=== PATIENT | female | born 1945 | race Caucasian/White ===

== ENCOUNTER 2020-08-08 14:27 | Outpatient (CLI) | payer MEDICARE, BC ==
[2020-08-09 01:52] LABS: SARS-CoV-2 PCR by NAA Not Detected (NotDetected)
== END 2020-08-08 14:28 | disposition home or self-care (01) ==
LOC: LABBT 14:27
PROVIDERS: ATTEND Family Medicine
DX: Z01.812 Encounter for preprocedural laboratory examination (principal); Z20.822 Contact with and (suspected) exposure to COVID-19
CPT/HCPCS: U0003; U0005; 87635

== ENCOUNTER 2020-08-13 08:08 | Day surgery (SDC) | payer MEDICARE, BC ==
[~2020-08-13 08:08] MED LIST: EPINEPHrine 0.3 MG in Ophthalmic Irrigation Solution 500 ML IRR SCH; Fentanyl 100 MCG/2 ML VIAL ONE; Midazolam HCl 2 mg/2 ml Vial ONE; PROPOFOL 20 ML ONE
[2020-08-13] MEDS ORDERED: Phenylephrine 2.5% Ophth Soln 5 ML BOT ONE (09:19)
[2020-08-13] MEDS ORDERED: Cyclopentolate 1% Ophth Drops 15 ML BOT ONE (09:19)
[2020-08-13] MEDS ORDERED: CEFAZOLIN 1 GM VIAL ONE (11:07)
[2020-08-13] MEDS ORDERED: Triamcinolone 40 MG/ML VIAL ONE (11:07)
[2020-08-13] MEDS ORDERED: Maxitrol 0.1% Opth Oint 3.5 GM TUBE ONE (11:07)
[2020-08-13] MEDS ORDERED: Lidocaine 4% PF 5 ML AMP ONE (11:07)
[2020-08-13] MEDS ORDERED: Bupivacaine PF 0.75% SDV 10 ML ONE (11:07)
[2020-08-13] MEDS ORDERED: Lidocaine 1% PF 5 ML VIAL ONE (11:07)
== END 2020-08-13 12:30 | disposition home or self-care (01) ==
LOC: SDC 08:08
PROVIDERS: ATTEND Ophthalmology Retina Specialist
PROC: 08T43ZZ Resection of Right Vitreous, Percutaneous Approach (ICD-10-PCS; principal; 2020-08-13)
PROC: 08NE3ZZ Release Right Retina, Percutaneous Approach (ICD-10-PCS; 2020-08-13)
DX: H43.821 Vitreomacular adhesion, right eye (principal); H43.311 Vitreous membranes and strands, right eye; Z79.82 Long term (current) use of aspirin; Z79.84 Long term (current) use of oral hypoglycemic drugs; Z79.899 Other long term (current) drug therapy; Z88.5 Allergy status to narcotic agent; Z88.6 Allergy status to analgesic agent
CPT/HCPCS: J0171; J0690; J2250; J2704; J3010; J3301; J3490

== ENCOUNTER 2022-10-27 06:45 | Day surgery (SDC) | payer MEDICARE, BC ==
[2022-10-26 11:31] VITALS: BMI 31.1
[~2022-10-27 06:45] MED LIST changes: -Fentanyl 100 MCG/2 ML VIAL ONE; -PROPOFOL 20 ML ONE; +fentaNYL 50 mcg/mL 1 mL Vial ONE
[2022-10-27] MEDS ORDERED: Cyclopentolate 1% Opth Drop 2 ML BOT ONE (07:56)
[2022-10-27] MEDS ORDERED: PHENYLephrine 2.5% Ophth Soln 15 ml Bottle ONE (07:56)
[2022-10-27] MEDS ORDERED: Triamcinolone 40 MG/ML VIAL ONE (08:29)
[2022-10-27] MEDS ORDERED: CEFAZOLIN 1 GM VIAL ONE (08:29)
[2022-10-27] MEDS ORDERED: PROPOFOL 200 MG/20 ML VIAL ONE (08:29)
[2022-10-27] MEDS ORDERED: Indocyanine Green 25 MG/10 ML VIAL ONE (08:29)
[2022-10-27] MEDS ORDERED: Lidocaine 1% PF 5 ML VIAL ONE (08:29)
[2022-10-27] MEDS ORDERED: Cyclopentolate HCl 1% 5 ML BOT ONE (08:29)
[2022-10-27] MEDS ORDERED: Maxitrol 0.1% Opth Oint 3.5 GM TUBE ONE (08:29)
== END 2022-10-27 09:37 | disposition home or self-care (01) ==
LOC: SDC 06:45
PROVIDERS: ATTEND Ophthalmology Retina Specialist
PROC: 08NE3ZZ Release Right Retina, Percutaneous Approach (ICD-10-PCS; principal; 2022-10-27)
DX: H35.371 Puckering of macula, right eye (principal); Z88.5 Allergy status to narcotic agent; Z88.6 Allergy status to analgesic agent
CPT/HCPCS: J0171; J0690; J2250; J2704; J3010; J3301